=== PATIENT | male | born 1950 | race Caucasian/White ===

== ENCOUNTER 2019-08-28 12:25 | Outpatient (RCR) | payer MEDICARE, MEDICAID, SELFPAY ==
[2019-08-28 12:53] LABS: Basophils # 0.1 10^3/uL (0.0-0.1); Basophils % 1.1 %; Eosinophils # 0.2 10^3/uL (0.0-0.8); Eosinophils % 2.3 %; Hematocrit 42.4 % (42.0-52.0); Hemoglobin 13.3 g/dL (11.7-16.6); Lymphocytes # 2.6 10^3/uL (0.8-4.8); Lymphocytes % 31.3 %; Mean Corpuscular HGB Conc 31.4 g/dL (30.0-36.0); Mean Corpuscular Hemoglobin 26.4 pg (28.0-34.0); Mean Corpuscular Volume 84.3 fL (80-94); Mean Platelet Volume 10.6 fL (7.4-10.4); Monocytes # 1.1 10^3/uL (0.2-0.9); Monocytes % 13.9 %; Neutrophils # 4.2 10^3/uL (1.8-7.7); Neutrophils % 50.9 %; Nucleated Red Blood Cells % 0 %; Platelet Count 375 10^3/cmm (130-400); Red Blood Count 5.03 10^6/uL (4.1-5.3); Red Cell Distribution Width 15.9 % (12.1-15.1); White Blood Count 8.2 10^3/uL (4.0-10.0)
[2019-08-28 13:13] LABS: Alanine Aminotransferase 10 U/L (0-41); Albumin Level 3.8 g/dL (3.5-5.2); Alkaline Phosphatase 98 IU/L (40-130); Anion Gap 13.7 (5-19); Aspartate Amino Transferase 12 U/L (0-40); Blood Urea Nitrogen 14 mg/dL (8-23); Carbon Dioxide 29 mmol/L (22-29); Chloride 101 mmol/L (98-107); Glucose 121 mg/dL (74-106); Potassium 4.7 mmol/L (3.5-5.1); Sodium 139 mmol/L (136-145); Total Bilirubin 0.2 mg/dL (0.15-1.2); Total Protein 6.8 g/dL (6.6-8.7)
== END 2019-09-19 23:59 | disposition home or self-care (01) ==
LOC: LAB 12:25
PROVIDERS: Family Provider Internal Medicine; Visit Provider Internal Medicine
DX: E11.9 Type 2 diabetes mellitus without complications (principal); M19.90 Unspecified osteoarthritis, unspecified site; F41.9 Anxiety disorder, unspecified; I10 Essential (primary) hypertension
CPT/HCPCS: 80053; 85025

== ENCOUNTER → 2019-09-26 10:13 | Outpatient (BNVA) | payer MEDICARE, MEDICAID, SELFPAY | PROVIDERS: Family Provider Internal Medicine; Visit Provider Psychiatry & Neurology Psychiatry | DX: F70 Mild intellectual disabilities (principal); F33.42 Major depressive disorder, recurrent, in full remission; G30.9 Alzheimer's disease, unspecified; F02.81 Dementia in other diseases classified elsewhere, unspecified severity, with behavioral disturbance | CPT/HCPCS: 99213 ==

== ENCOUNTER → 2020-03-19 07:29 | Outpatient (BNVA) | payer MEDICARE, MEDICAID, SELFPAY | PROVIDERS: Family Provider Internal Medicine; Visit Provider Psychiatry & Neurology Psychiatry | DX: F33.42 Major depressive disorder, recurrent, in full remission (principal); F70 Mild intellectual disabilities; G30.9 Alzheimer's disease, unspecified; F02.81 Dementia in other diseases classified elsewhere, unspecified severity, with behavioral disturbance | CPT/HCPCS: 99213 ==

== ENCOUNTER 2020-06-12 16:44 | Emergency (ER) | payer MEDICARE, MEDICAID, SELFPAY ==
[2020-06-12] VITALS (7 sets, daily range): BP systolic 141–179; BP diastolic 90–109; PULSE 82–117; RESP 16–24; TEMP 37.2–39.1; O2SAT 92–95; BMI 40.1
--- NOTE | 2020-06-12 17:05 | XRR_ITS ---
PROCEDURE INFORMATION: Exam: XR Chest, 1 View Exam date and time: 06/12/2020 5:23 PM Age: 70 years old Clinical indication: Patient HX: Covid+ w fever, AMS and HTN TECHNIQUE: Imaging protocol: XR of the chest Views: 1 view. COMPARISON: CR Chest 1 [place] [id number] 02/01/2015 7:38 PM FINDINGS: Lungs: Subtle ground-glass opacity suspected in the lung bases. Linear atelectasis in the left lung base. Pleural space: Unremarkable. No pleural effusion. No pneumothorax. Heart/Mediastinum: Probable hiatal hernia. Bones/joints: Unremarkable. XR/XR chest 1V portable [id number] IMPRESSION: Subtle ground-glass opacities in the lung bases could represent viral pneumonia.
[2020-06-12 17:07] LABS: Glucose Point of Care 125 mg/dL (70-110)
--- NOTE | 2020-06-12 17:09 | ED_ITS ---
Documented by User: Kaleb Patel DO 06/14/20 17:40 HPI - URI/Sore Throat General: Chief Complaint: COVID symptoms Stated Complaint: COVID POS; AMS Time Seen by Provider: 06/12/20 16:53 History of Present Illness: HPI Narrative: 70-year-old male brought in from the alf via EMS. He tested positive on 06/03 at the alf. He was sent in via EMS with a complaint of altered mental status and elevated blood sugars. He is currently on dexamethasone. Blood sugar here was 120s. He has a known history of type 2 diabetes mellitus. He has some dementia and mild intellectual disability. Here he is laughing and in good spirits he denies any chest pain or shortness of breath even denies cough at this point. He denies any injury. There is report of back pain when asked him about back pain he denies any. There is also reported fever of 1012 at the alf. Patient is a full code. Patient is disoriented to time place and person he is tearful when he first arrives here but after a time this resolves and he is in good spirits. [facility] reports he is not a known diabetic however there are labs ordered in August of this year under the diagnosis of diabetes in our EMR. MD elicited complaint: other (Covid positive on 06/03) Pertinent past history: other (Mild dementia and intellectual disability) Onset (ago): day(s) Consistency: improved Severity: mild Able to tolerate fluids by mouth: Yes Exacerbating factors: nothing Relieving factors: nothing Associated symptoms: Deny abdominal pain, change in voice, chills, chest pain, congestion, cough, diarrhea, epistaxis, ear or mastoid pain, fever(s), headache(s), myalgias, nasal congestion, nausea, rash, rhinorrhea, short of breath, sinus pain, stiffness, sore throat, vomiting or other Treatments prior to arrival: none Review of Systems Const: Denies: fever(s) or chills ENMT: Denies: ear or mastoid pain, nasal congestion, epistaxis or sinus pain Card: Denies: chest pain Resp: Denies: dyspnea, productive cough or non-productive cough GI: Denies: abdominal pain, nausea, vomiting or diarrhea : Denies: flank pain, dysuria, urinary frequency or urinary urgency Skin/Breast: Denies: rash or pruritus Neuro: Denies: headache(s) PFSH ED PFSH: Medical History Alzheimer's dementia Depression, major, recurrent, in complete remission Mild intellectual disability Social History Smoking and tobacco status: never smoked Second hand smoke exposure: No Smoking risk assessment/counseling performed?: Yes Tobacco counseling given: counseling >3 minutes Physical Exam Const: COMMON NORMALS: no acute distress GENERAL APPEARANCE: cooperative and comfortable HENMT: COMMON NORMALS: normocephalic, atraumatic and hearing grossly normal bilaterally HEAD & SCALP: normocephalic and atraumatic Eye: COMMON NORMALS: Equal, round and reactive pupils present, EOMs intact bilaterally, conjunctivae normal and no scleral icterus CONJUNCTIVA: Yes conjunctivae normal PUPIL: Yes Equal, round and reactive pupils present Neck/C-Spine: COMMON NORMALS: full ROM, no lymphadenopathy, supple and no JVD Lymph: LYMPHATIC: no lymphadenopathy noted and no lymphedema noted Resp: COMMON NORMALS: normal respiratory effort, No retractions, No use of accessory muscles and clear to auscultation bilaterally AUSCULTATION: clear to auscultation bilaterally Cardio: COMMON NORMALS: no JVD, regular rate, regular rhythm and No murmurs present (Cardio) RATE: regular rate RHYTHM: regular rhythm GI: COMMON NORMALS: Soft to palpation and No hepatosplenomegaly present A USCULTATION: Yes normoactive bowel sounds PALPATION: Yes Soft to palpation, No Tenderness to palpation present (GI), No Guarding due to palpation present (GI) and Yes No hepatosplenomegaly present Extremity: COMMON NORMALS: normal to inspection, capillary refill normal, no clubbing, cyanosis or edema, no calf tenderness and no pedal edema Skin: COMMON NORMALS: no rashes or lesions noted GENERAL SKIN EXAM: no rashes or lesions noted Course Vital Signs: Vital signs: Vital Signs Temperature 98.9 F 06/12/20 20:43 Pulse Rate 85 06/12/20 20:43 Respiratory Rate 18 06/12/20 20:43 Blood Pressure 147/97 06/12/20 20:43 Pulse Oximetry 93 10/24/20 20:43 MDM - URI/Sore Throat MDM Narrative: Medical decision making narrative: Care turned over to Dr. Angeles at change of shift see his note for final diagnosis and disposition. Lab Data: Labs: Lab Results 06/12/20 06/12/20 06/12/20 Range/Units 17:01 17:05 17:05 WBC 18.1 H (4.0-10.0) 10^3/ uL RBC 5.65 H (4.1-5.3) 10^6/u L Hgb 15.2 (11.7-16.6) g/dL Hct 45.9 (42.0-52.0) % MCV 81.2 (80-94) fL MCH 26.9 L (28.0-34.0) pg MCHC 33.1 (30.0-36.0) g/dL RDW 15.1 (12.1-15.1) % Plt Count 316 (130-400) 10^3/c mm MPV 11.3 H (7.4-10.4) fL Neut % (Auto) 84.4 % Lymph % (Auto) 7.2 % Reagan % (Auto) 7.1 % Eos % (Auto) 0.0 % Baso % (Auto) 0.2 % Neut # (Auto) 15.27 H (1.8-7.7) 10^3/u L Lymph # (Auto) 1.3 (0.8-4.8) 10^3/u L Reagan # (Auto) 1.3 H (0.2-0.9) 10^3/u L Eos # (Auto) 0.0 (0.0-0.8) 10^3/u L Baso # (Auto) 0.0 (0.0-0.1) 10^3/u L Nucleated RBC % (a uto) 0 % Nucleated RBCs # 0.0 /100WBC Fibrinogen 614 H (174-498) mg/dL D-Dimer 0.59 (0-0.59) ug/mIFE U Specimen Type Sample Site ABG pH (7.35-7.45) ABG pCO2 (35-45) mmHg ABG pO2 (80.0-100.0) mmH g ABG HCO3 (22-26) mmol/L ABG Base Excess (-2.0-2.0) mmol/ L Ashish Test Hematocrit (42-52) % O2 Delivery Device FiO2 % [employer] ID Sodium Potassium Chloride Carbon Dioxide Anion Gap BUN Creatinine GFR Calculation Glucose POC Glucose 125 (70-110) mg/dL Calculated Osmolal ity Lactic Acid Calcium Total Bilirubin AST ALT Alkaline Phosphata se Lactate Dehydrogen ase Creatine Kinase C-Reactive Protein Total Protein Albumin Globulin 06/12/20 06/12/20 06/12/20 Range/Units 17:05 17:41 18:29 WBC (4.0-10.0) 10^3/ uL RBC (4.1-5.3) 10^6/u L Hgb (11.7-16.6) g/dL Hct (42.0-52.0) % MCV (80-94) fL MCH (28.0-34.0) pg MCHC (30.0-36.0) g/dL RDW (12.1-15.1) % Plt Count (130-400) 10^3/c mm MPV (7.4-10.4) fL Neut % (Auto) % Lymph % (Auto) % Reagan % (Auto) % Eos % (Auto) % Baso % (Auto) % Neut # (Auto) (1.8-7.7) 10^3/u L Lymph # (Auto) (0.8-4.8) 10^3/u L Reagan # (Auto) (0.2-0.9) 10^3/u L Eos # (Auto) (0.0-0.8) 10^3/u L Baso # (Auto) (0.0-0.1) 10^3/u L Nucleated RBC % (a uto) % Nucleated RBCs # /100WBC Fibrinogen (174-498) mg/dL D-Dimer (0-0.59) ug/mIFE U Specimen Type Arterial Sample Site Radial, right ABG pH 7.49 H (7.35-7.45) ABG pCO2 34.4 L (35-45) mmHg ABG pO2 61.2 L (80.0-100.0) mmH g ABG HCO3 25.9 (22-26) mmol/L ABG Base Excess 2.8 H (-2.0-2.0) mmol/ L Ashish Test Pos Hematocrit 46.5 (42-52) % O2 Delivery Device Room air FiO2 21.0 % [employer] ID glc Sodium Cancelled Potassium Cancelled Chloride Cancelled Carbon Dioxide Cancelled Anion Gap Cancelled BUN Cancelled Creatinine Cancelled GFR Calculation Cancelled Glucose Cancelled POC Glucose (70-110) mg/dL Calculated Osmolal ity Cancelled Lactic Acid Cancelled Calcium Cancelled Total Bilirubin Cancelled AST Cancelled ALT Cancelled Alkaline Phosphata se Cancelled Lactate Dehydrogen ase Cancelled Creatine Kinase Cancelled C-Reactive Protein Cancelled Total Protein Cancelled Albumin Cancelled Globulin Cancelled 06/12/20 06/12/20 Range/Units 19:10 19:10 WBC (4.0-10.0) 10^3/ uL RBC (4.1-5.3) 10^6/u L Hgb (11.7-16.6) g/dL Hct (42.0-52.0) % MCV (80-94) fL MCH (28.0-34.0) pg MCHC (30.0-36.0) g/dL RDW (12.1-15.1) % Plt Count (130-400) 10^3/c mm MPV (7.4-10.4) fL Neut % (Auto) % Lymph % (Auto) % Reagan % (Auto) % Eos % (Auto) % Baso % (Auto) % Neut # (Auto) (1.8-7.7) 10^3/u L Lymph # (Auto) (0.8-4.8) 10^3/u L Reagan # (Auto) (0.2-0.9) 10^3/u L Eos # (Auto) (0.0-0.8) 10^3/u L Baso # (Auto) (0.0-0.1) 10^3/u L Nucleated RBC % (a uto) % Nucleated RBCs # /100WBC Fibrinogen (174-498) mg/dL D-Dimer (0-0.59) ug/mIFE U Specimen Type Sample Site ABG pH (7.35-7.45) ABG pCO2 (35-45) mmHg ABG pO2 (80.0-100.0) mmH g ABG HCO3 (22-26) mmol/L ABG Base Excess (-2.0-2.0) mmol/ L Ashish Test Hematocrit (42-52) % O2 Delivery Device FiO2 % [employer] ID Sodium 133 L Potassium 3.9 Chloride 99 Carbon Dioxide 21 L Anion Gap 16.9 BUN 19 Creatinine 0.9 GFR Calculation 83.4 L Glucose 143 H POC Glucose (70-110) mg/dL Calculated Osmolal ity 281 L Lactic Acid 1.0 Calcium 8.2 L Total Bilirubin 0.3 AST 19 ALT 20 Alkaline Phosphata se 89 Lactate Dehydrogen ase 231 H Creatine Kinase 196 C-Reactive Protein 151.9 H Total Protein 6.8 Albumin 3.1 L Globulin 3.7 Discharge Plan Discharge Patient Disposition: Xfer [facility] Clinical Impression: Pneumonia due to 2019 novel coronavirus Condition: Stable Prescriptions: No Action lovastatin 20 mg tablet 20 mg PO DAILY RF: 0 omeprazole 40 mg capsule,delayed release(DR/EC) 40 mg PO .HS RF: 0 tamsulosin [Flomax] 0.4 mg capsule 0.4 mg PO DAILY RF: 0 bisacodyl 10 mg suppository 10 mg SC DAILY PRN (Reason: constipation) RF: 0 acetaminophen 500 mg capsule 500 mg PO Q6H PRNRF: 0 finasteride 5 mg tablet 5 mg PO DAILY RF: 0 quetiapine [Seroquel] 50 mg tablet 50 mg PO DAILY RF: 0 polyethylene glycol 3350 [Miralax] 17 gram/dose powder 17 gm PO DAILY PRN (Reason: constipation) RF: 0 Enema Disposable 19-7 gram/118 mL enema 118 ml SC DAILY PRNRF: 0 bisacodyl [Dulcolax (bisacodyl)] 10 mg suppository 10 mg SC DAILY PRNRF: 0 melatonin 1 mg tablet 1 mg PO DAILY RF: 0 magnesium hydroxide [Milk of Magnesia] 400 mg/5 mL suspension 5 ml PO DAILY PRNRF: 0 menthol 3.2 mg lozenge 3.2 mg MUCOUS MEM Q4H RF: 0 ondansetron HCl 4 mg tablet 4 mg PO Q6H PRN (Reason: nausea and vomiting) RF: 0 guaifenesin [Tussin] 100 mg/5 mL liquid 200 mg PO QID PRNRF: 0 Preparation H 0.25-14-74.9 % ointment 1 applic SC DAILY PRN (Reason: rectal discomfort) RF: 0 alum-mag hydroxide-simeth 200-200-20 mg/5 mL suspension 10 ml PO Q6H PRNRF: 0 Natural Tears (PF) 0.1-0.3 % dropperette 1 drop ophthalmic (eye) Q4H PRNRF: 0 bupropion HCl [Wellbutrin XL] 300 mg tablet extended release 24 hr 300 mg PO QAM Qty: 30 RF: 5 bupropion HCl [Wellbutrin XL] 150 mg tablet extended release 24 hr 150 mg PO QAM Qty: 30 RF: 5 desvenlafaxine succinate [Pristiq] 100 mg tablet extended release 24 hr 100 mg PO DAILY Qty: 30 RF: 5 donepezil [Aricept] 10 mg tablet 10 mg PO .HS Qty: 30 RF: 5 memantine [Namenda] 10 mg tablet 10 mg PO BID Qty: 60 RF: 5 Discharge Orders: Discharge Order (Routine); Ordered 06/12/20 Ordered By: Subhash Angeles Referrals: Emerson Pressley DO [Primary Care Provider] - Discharge Diet: Diabetic Discharge Activity: Increase activity as tolerated Patient Instructions: Viral Pneumonia (ED) Activity Restrictions/Additional Instructions: Continue to check blood sugars. Alert the physician if blood sugar remains more than 250, or is more than 150 fasting in the morning. Sugars may improve after course of dexamethasone is over. Continue the dexamethasone for now. Return for worsening shortness of breath despite treatment with oxygen, worsening mental status, inability to control blood sugar, other concerning symptoms. Discharge Date/Time: 06/12/20 22:03 Coding Level of Care Code ED Cotton Bag Clipper for Chg Fwd Exam Comprehensive Documented by User: Subhash Angeles DO 06/13/20 01:23 HPI - URI/Sore Throat General: Chief Complaint: COVID symptoms Stated Complaint: COVID POS; AMS Time Seen by Provider: 06/12/20 16:53 PFSH ED PFSH: Medical History Alzheimer's dementia Depression, major, recurrent, in complete remission Mild intellectual disability Social History Smoking and tobacco status: never smoked Second hand smoke exposure: No Smoking risk assessment/counseling performed?: Yes Tobacco counseling given: counseling >3 minutes Course Vital Signs: Vital signs: Vital Signs Temperature 98.9 F 06/12/20 20:43 Pulse Rate 85 06/12/20 20:43 Respiratory Rate 18 06/12/20 20:43 Blood Pressure 147/97 06/12/20 20:43 Pulse Oximetry 93 06/12/20 20:43 MDM - URI/Sore Throat MDM Narrative: Medical decision making narrative: 70-year-old male checked out to me by Dr. Patel. This patient has a history of dementia. He came from a alf with mental status changes. He has known COVID-19. He is mildly hypoxic, and on oxygen. Sats have been 90 to 93%. His respiratory rate is below 20. His heart rates in the 80s. Blood pressure is 140/90. His white blood cell count is 18, but he has been on dexamethasone for COVID-19. His bicarbonate level is 21. He is confused, but knows he is in the hospital in [place] and is conversant. His blood gas does not show any retention or acidosis. His lactic acid is normal. His CRP is elevated, but his D-dimer is normal. He has subtle opacities on x-ray. I think he can go back to continue his dexamethasone. He was sent here because of the potential of hyperglycemia, but without treatment his blood sugar is in the 120s. Lab Data: Labs: Lab Results 06/12/20 06/12/20 06/12/20 Range/Units 17:01 17:05 17:05 WBC 18.1 H (4.0-10.0) 10^3/ uL RBC 5.65 H (4.1-5.3) 10^6/u L Hgb 15.2 (11.7-16.6) g/dL Hct 45.9 (42.0-52.0) % MCV 81.2 (80-94) fL MCH 26.9 L (28.0-34.0) pg MCHC 33.1 (30.0-36.0) g/dL RDW 15.1 (12.1-15.1) % Plt Count 316 (130-400) 10^3/c mm MPV 11.3 H (7.4-10.4) fL Neut % (Auto) 84.4 % Lymph % (Auto) 7.2 % Reagan % (Auto) 7.1 % Eos % (Auto) 0.0 % Baso % (Auto) 0.2 % Neut # (Auto) 15.27 H (1.8-7.7) 10^3/u L Lymph # (Auto) 1.3 (0.8-4.8) 10^3/u L Reagan # (Auto) 1.3 H (0.2-0.9) 10^3/u L Eos # (Auto) 0.0 (0.0-0.8) 10^3/u L Baso # (Auto) 0.0 (0.0-0.1) 10^3/u L Nucleated RBC % (a uto) 0 % Nucleated RBCs # 0.0 /100WBC Fibrinogen 614 H (174-498) mg/dL D-Dimer 0.59 (0-0.59) ug/mIFE U Specimen Type Sample Site ABG pH (7.35-7.45) ABG pCO2 (35-45) mmHg ABG pO2 (80.0-100.0) mmH g ABG HCO3 (22-26) mmol/L ABG Base Excess (-2.0-2.0) mmol/ L Ashish Test Hematocrit (42-52) % O2 Delivery Device FiO2 % [employer] ID Sodium Potassium Chloride Carbon Dioxide Anion Gap BUN Creatinine GFR Calculation Glucose POC Glucose 125 (70-110) mg/dL Calculated Osmolal ity Lactic Acid Calcium Total Bilirubin AST ALT Alkaline Phosphata se Lactate Dehydrogen ase Creatine Kinase C-Reactive Protein Total Protein Albumin Globulin 06/12/20 06/12/20 06/12/20 Range/Units 17:05 17:41 18:29 WBC (4.0-10.0) 10^3/ uL RBC (4.1-5.3) 10^6/u L Hgb (11.7-16.6) g/dL Hct (42.0-52.0) % MCV (80-94) fL MCH (28.0-34.0) pg MCHC (30.0-36.0) g/dL RDW (12.1-15.1) % Plt Count (130-400) 10^3/c mm MPV (7.4-10.4) fL Neut % (Auto) % Lymph % (Auto) % Reagan % (Auto) % Eos % (Auto) % Baso % (Auto) % Neut # (Auto) (1.8-7.7) 10^3/u L Lymph # (Auto) (0.8-4.8) 10^3/u L Reagan # (Auto) (0.2-0.9) 10^3/u L Eos # (Auto) (0.0-0.8) 10^3/u L Baso # (Auto) (0.0-0.1) 10^3/u L Nucleated RBC % (a uto) % Nucleated RBCs # /100WBC Fibrinogen (174-498) mg/dL D-Dimer (0-0.59) ug/mIFE U Specimen Type Arterial Sample Site Radial, right ABG pH 7.49 H (7.35-7.45) ABG pCO2 34.4 L (35-45) mmHg ABG pO2 61.2 L (80.0-100.0) mmH g ABG HCO3 25.9 (22-26) mmol/L ABG Base Excess 2.8 H (-2.0-2.0) mmol/ L Ashish Test Pos Hematocrit 46.5 (42-52) % O2 Delivery Device Room air FiO2 21.0 % [employer] ID glc Sodium Cancelled Potassium Cancelled Chloride Cancelled Carbon Dioxide Cancelled Anion Gap Cancelled BUN Cancelled Creatinine Cancelled GFR Calculation Cancelled Glucose Cancelled POC Glucose (70-110) mg/dL Calculated Osmolal ity Cancelled Lactic Acid Cancelled Calcium Cancelled Total Bilirubin Cancelled AST Cancelled ALT Cancelled Alkaline Phosphata se Cancelled Lactate Dehydrogen ase Cancelled Creatine Kinase Cancelled C-Reactive Protein Cancelled Total Protein Cancelled Albumin Cancelled Globulin Cancelled 06/12/20 06/12/20 Range/Units 19:10 19:10 WBC (4.0-10.0) 10^3/ uL RBC (4.1-5.3) 10^6/u L Hgb (11.7-16.6) g/dL Hct (42.0-52.0) % MCV (80-94) fL MCH (28.0-34.0) pg MCHC (30.0-36.0) g/dL RDW (12.1-15.1) % Plt Count (130-400) 10^3/c mm MPV (7.4-10.4) fL Neut % (Auto) % Lymph % (Auto) % Reagan % (Auto) % Eos % (Auto) % Baso % (Auto) % Neut # (Auto) (1.8-7.7) 10^3/u L Lymph # (Auto) (0.8-4.8) 10^3/u L Reagan # (Auto) (0.2-0.9) 10^3/u L Eos # (Auto) (0.0-0.8) 10^3/u L Baso # (Auto) (0.0-0.1) 10^3/u L Nucleated RBC % (a uto) % Nucleated RBCs # /100WBC Fibrinogen (174-498) mg/dL D-Dimer (0-0.59) ug/mIFE U Specimen Type Sample Site ABG pH (7.35-7.45) ABG pCO2 (35-45) mmHg ABG pO2 (80.0-100.0) mmH g ABG HCO3 (22-26) mmol/L ABG Base Excess (-2.0-2.0) mmol/ L Ashish Test Hematocrit (42-52) % O2 Delivery Device FiO2 % [employer] ID Sodium 133 L Potassium 3.9 Chloride 99 Carbon Dioxide 21 L Anion Gap 16.9 BUN 19 Creatinine 0.9 GFR Calculation 83.4 L Glucose 143 H POC Glucose (70-110) mg/dL Calculated Osmolal ity 281 L Lactic Acid 1.0 Calcium 8.2 L Total Bilirubin 0.3 AST 19 ALT 20 Alkaline Phosphata se 89 Lactate Dehydrogen ase 231 H Creatine Kinase 196 C-Reactive Protein 151.9 H Total Protein 6.8 Albumin 3.1 L Globulin 3.7 Discharge Plan Discharge Patient Disposition: Xfer [facility] Clinical Impression: Pneumonia due to 2019 novel coronavirus Condition: Stable Prescriptions: No Action lovastatin 20 mg tablet 20 mg PO DAILY RF: 0 omeprazole 40 mg capsule,delayed release(DR/EC) 40 mg PO .HS RF: 0 tamsulosin [Flomax] 0.4 mg capsule 0.4 mg PO DAILY RF: 0 bisacodyl 10 mg suppository 10 mg SC DAILY PRN (Reason: constipation) RF: 0 acetaminophen 500 mg capsule 500 mg PO Q6H PRNRF: 0 finasteride 5 mg tablet 5 mg PO DAILY RF: 0 quetiapine [Seroquel] 50 mg tablet 50 mg PO DAILY RF: 0 polyethylene glycol 3350 [Miralax] 17 gram/dose powder 17 gm PO DAILY PRN (Reason: constipation) RF: 0 Enema Disposable 19-7 gram/118 mL enema 118 ml SC DAILY PRNRF: 0 bisacodyl [Dulcolax (bisacodyl)] 10 mg suppository 10 mg SC DAILY PRNRF: 0 melatonin 1 mg tablet 1 mg PO DAILY RF: 0 magnesium hydroxide [Milk of Magnesia] 400 mg/5 mL suspension 5 ml PO DAILY PRNRF: 0 menthol 3.2 mg lozenge 3.2 mg MUCOUS MEM Q4H RF: 0 ondansetron HCl 4 mg tablet 4 mg PO Q6H PRN (Reason: nausea and vomiting) RF: 0 guaifenesin [Tussin] 100 mg/5 mL liquid 200 mg PO QID PRNRF: 0 Preparation H 0.25-14-74.9 % ointment 1 applic SC DAILY PRN (Reason: rectal discomfort) RF: 0 alum-mag hydroxide-simeth 200-200-20 mg/5 mL suspension 10 ml PO Q6H PRNRF: 0 Natural Tears (PF) 0.1-0.3 % dropperette 1 drop ophthalmic (eye) Q4H PRNRF: 0 bupropion HCl [Wellbutrin XL] 300 mg tablet extended release 24 hr 300 mg PO QAM Qty: 30 RF: 5 bupropion HCl [Wellbutrin XL] 150 mg tablet extended release 24 hr 150 mg PO QAM Qty: 30 RF: 5 desvenlafaxine succinate [Pristiq] 100 mg tablet extended release 24 hr 100 mg PO DAILY Qty: 30 RF: 5 donepezil [Aricept] 10 mg tablet 10 mg PO .HS Qty: 30 RF: 5 memantine [Namenda] 10 mg tablet 10 mg PO BID Qty: 60 RF: 5 Discharge Orders: Discharge Order (Routine); Ordered 06/12/20 Ordered By: Subhash Angeles Referrals: Emerson Pressley DO [Primary Care Provider] - Discharge Diet: Diabetic Discharge Activity: Increase activity as tolerated Patient Instructions: Viral Pneumonia (ED) Activity Restrictions/Additional Instructions: Continue to check blood sugars. Alert the physician if blood sugar remains more than 250, or is more than 150 fasting in the morning. Sugars may improve after course of dexamethasone is over. Continue the dexamethasone for now. Return for worsening shortness of breath despite treatment with oxygen, worsening mental status, inability to control blood sugar, other concerning symptoms. Discharge Date/Time: 06/12/20 22:03 Coding Level of Care Code ED Cotton Bag Clipper for Chg Fwd Exam Comprehensive
[2020-06-12 17:23] LABS: Basophils % 0.2 %; Hematocrit 45.9 % (42.0-52.0); Hemoglobin 15.2 g/dL (11.7-16.6); Lymphocytes # 1.3 10^3/uL (0.8-4.8); Lymphocytes % 7.2 %; Mean Corpuscular HGB Conc 33.1 g/dL (30.0-36.0); Mean Corpuscular Hemoglobin 26.9 pg (28.0-34.0); Mean Corpuscular Volume 81.2 fL (80-94); Mean Platelet Volume 11.3 fL (7.4-10.4); Monocytes # 1.3 10^3/uL (0.2-0.9); Monocytes % 7.1 %; Neutrophils # 15.27 10^3/uL (1.8-7.7); Neutrophils % 84.4 %; Nucleated Red Blood Cells % 0 %; Platelet Count 316 10^3/cmm (130-400); Red Blood Count 5.65 10^6/uL (4.1-5.3); Red Cell Distribution Width 15.1 % (12.1-15.1); White Blood Count 18.1 10^3/uL (4.0-10.0)
[2020-06-12 17:43] LABS: Fibrinogen 614 mg/dL (174-498)
[2020-06-12 17:46] LABS: D Dimer 0.59 ug/mIFEU (0-0.59)
[2020-06-12 18:39] LABS: ABG PCO2 34.4 mmHg (35-45); ABG PH Result 7.49 (7.35-7.45); Arterial Blood Gas Hematocrit 46.5 % (42-52); Base Excess ABG 2.8 mmol/L (-2.0-2.0); Blood Gas Allen Test Pos; Blood Gas Operator Identificat glc; Blood Gas Sample Site Radial, right; Blood Gas Sample Type Arterial; HCO3 ABG 25.9 mmol/L (22-26); Oxygen Device ROOM AIR; PO2 ABG 61.2 mmHg (80.0-100.0)
[2020-06-12 19:47] LABS: Alanine Aminotransferase 20 U/L (0-41); Albumin Level 3.1 g/dL (3.5-5.2); Alkaline Phosphatase 89 IU/L (40-130); Anion Gap 16.9 (5-19); Aspartate Amino Transferase 19 U/L (0-40); Blood Urea Nitrogen 19 mg/dL (8-23); C Reactive Protein 151.9 mg/L (0.0-4.9); Calcium 8.2 mg/dL (8.5-10.5); Carbon Dioxide 21 mmol/L (22-29); Chloride 99 mmol/L (98-107); Creatine Phosphokinase 196 U/L (39-308); Globulin 3.7 g/dL (1.3-4.6); Glomerular Filtration Rate 83.4 mL/min (90-130); Glucose 143 mg/dL (65-115); Osmolality Calculated 281 mOsm/kg (285-295); Potassium 3.9 mmol/L (3.5-5.1); Sodium 133 mmol/L (136-145); Total Bilirubin 0.3 mg/dL (0.15-1.2); Total Protein 6.8 g/dL (6.6-8.7)
[2020-06-12] MEDS: acetaminophen 500 mg Tablet 1000 MG PO (20:09)
[2020-06-12 20:53] LABS: Lactate Dehydrogenase 231 U/L (135-225)
--- NOTE | 2020-06-12 22:02 | PC.NURSE ---
Transport here. Pt out via wheelchair with transport to [place].
== END 2020-06-12 22:03 | disposition skilled nursing facility (03) ==
PROVIDERS: Family Medicine; Emergency Provider Emergency Medicine; PCP Internal Medicine
DX: U07.1 COVID-19 (principal); J12.89 Other viral pneumonia; G30.9 Alzheimer's disease, unspecified; F02.80 Dementia in other diseases classified elsewhere, unspecified severity, without behavioral disturbance, psychotic disturbance, mood disturbance, and anxiety
CPT/HCPCS: 12345; 36416; 36600; 71045; 80053; 82550; 82803; 82962; 83605; 83615; 85025; 85378; 85384; 86140; 99283; 99284

== ENCOUNTER 2020-09-26 17:16 | Emergency (ER) | payer MEDICARE, MEDICAID, SELFPAY ==
[2020-09-26 17:19] VITALS: BP 203/120; PULSE 103; RESP 18; TEMP 36.2; O2SAT 92; BMI 34.9
[2020-09-26 17:28] VITALS: BP 203/120; PULSE 107; RESP 18; O2SAT 92
--- NOTE | 2020-09-26 17:28 | CTR_ITS ---
PROCEDURE INFORMATION: Exam: CT Head Without Contrast Exam date and time: 09/26/2020 5:38 PM Age: 70 years old Clinical indication: Injury or trauma; Blunt trauma (contusions or hematomas); Consciousness not specified; Patient HX: Nh PT w dementia found face down on floor (unwitnessed fall) C/O pain all over; Additional info: Fall/dementia ? altered TECHNIQUE: Imaging protocol: Computed tomography of the head without contrast. Total images: 207 Radiation optimization: All CT scans at this facility use at least one of these dose optimization techniques: automated exposure control; mA and/or kV adjustment per patient size (includes targeted exams where dose is matched to clinical indication); or iterative reconstruction. COMPARISON: CT head wo con* [id number] 06/26/2014 9:13 PM RADIATION DOSE METRICS: Total DLP (mGy-cm): 725.48 FINDINGS: Brain: No evidence of active or acute intracranial pathologic process, hemorrhage, or trauma. Unremarkable white matter for age. No mass effect. Cerebral ventricles: No ventriculomegaly. Bones/joints: Unremarkable. No acute fracture. Paranasal sinuses: Visualized sinuses are unremarkable. No fluid levels. Mastoid air cells: Visualized mastoid air cells are well aerated. Soft tissues: Unremarkable. CT/CT head wo con* [id number] IMPRESSION: No acute intracranial abnormality. Radiation Dose CTDIVOL = (mGy): DLP = 725.48 (mGy-cm)
--- NOTE | 2020-09-26 17:28 | XRR_ITS ---
PROCEDURE INFORMATION: Exam: XR Left Elbow Exam date and time: 09/26/2020 5:53 PM Age: 70 years old Clinical indication: Injury or trauma; Fall; Blunt trauma (contusions or hematomas); Elbow; Left TECHNIQUE: Imaging protocol: XR Left elbow. Views: 3 or more views. COMPARISON: No relevant prior studies available. FINDINGS: Tubes, catheters and devices: There is a catheter in the cubital fossa. Bones/joints: No evidence for acute fracture. Soft tissues: There is edema in the soft tissues posterior to the elbow. XR/XR elbow LT min 3V* [id number] IMPRESSION: Edema present in the soft tissues posterior to the elbow.
--- NOTE | 2020-09-26 17:29 | CTR_ITS ---
PROCEDURE INFORMATION: Exam: CT Chest Without Contrast; Diagnostic Exam date and time: 09/26/2020 5:38 PM Age: 70 years old Clinical indication: Injury or trauma; Generalized; Blunt trauma (contusions or hematomas); Prior surgery; Surgery date: 6+ months; Surgery type: Spleen; Patient HX: Nh PT w dementia found face down on floor (unwitnessed fall) C/O pain all over; Additional info: Unspecified abdominal pain TECHNIQUE: Imaging protocol: Diagnostic computed tomography of the chest without contrast. Radiation optimization: All CT scans at this facility use at least one of these dose optimization techniques: automated exposure control; mA and/or kV adjustment per patient size (includes targeted exams where dose is matched to clinical indication); or iterative reconstruction. COMPARISON: CT abdomen pelvis w con* [id number] 02/02/2017 10:06 AM RADIATION DOSE METRICS: Total DLP (mGy-cm): 2855.01 FINDINGS: Lungs: There are pulmonary parenchymal calcifications consistent with remote granulomatous organism exposure. Pleural spaces: Unremarkable. No pneumothorax. No pleural effusion. Heart: Unremarkable. No cardiomegaly. No pericardial effusion. Aorta: Unremarkable. No aortic aneurysm. Lymph nodes: Unremarkable. No enlarged lymph nodes. Diaphragm: Small fat containing hernia at the posteromedial aspect of the left hemidiaphragm is unchanged from the prior study. Fat containing paraesophageal also unchanged. Bones/joints: There is some ill-defined contour abnormality at the lateral aspects of the left 3rd through 7th ribs consistent with fracture of unknown chronicity. No definite acute soft tissue changes are seen in these regions and motion artifact makes evaluation suboptimal. There is prominent motion artifact in the region of the sternum and a sternal fracture cannot be excluded. Soft tissues: See Bones/joints finding. IMPRESSION: 1. Motion artifact does moderately limit the sensitivity of this examination.There is some ill-defined contour abnormality at the lateral aspects of the left 3rd through 7th ribs consistent with fracture of unknown chronicity. If there is acute pain in these locations, fractures are likely acute. Please correlate clinically. 2. There is prominent motion artifact in the region of the sternum and a sternal fracture cannot be excluded. PROCEDURE INFORMATION: Exam: CT Abdomen And Pelvis Without Contrast Exam date and time: 09/26/2020 5:38 PM Age: 70 years old Clinical indication: Injury or trauma; Generalized; Blunt trauma (contusions or hematomas); Prior surgery; Surgery date: 6+ months; Surgery type: Spleen; Patient HX: Nh PT w dementia found face down on floor (unwitnessed fall) C/O pain all over; Additional info: Unspecified abdominal pain TECHNIQUE: Imaging protocol: Computed tomography of the abdomen and pelvis without contrast. Radiation optimization: All CT scans at this facility use at least one of these dose optimization techniques: automated exposure control; mA and/or kV adjustment per patient size (includes targeted exams where dose is matched to clinical indication); or iterative reconstruction. COMPARISON: CT abdomen pelvis w con* [id number] 02/02/2017 10:06 AM RADIATION DOSE METRICS: Total DLP (mGy-cm): 2855.01 FINDINGS: Liver: Normal. No mass. Gallbladder and bile ducts: Normal. No calcified stones. No ductal dilation. Pancreas: Normal. No ductal dilation. Spleen: Spleen not visualized. Adrenal glands: Normal. No mass. Kidneys and ureters: There cysts in the left kidney with benign features the larger of which measures 17 mm. Follow-up is not necessary. Stomach and bowel: Unremarkable. No obstruction. No mucosal thickening. Appendix: No evidence of appendicitis. Intraperitoneal space: Unremarkable. No free air. No significant fluid collection. Vasculature: Unremarkable. No abdominal aortic aneurysm. Lymph nodes: Unremarkable. No enlarged lymph nodes. Urinary bladder: Unremarkable as visualized. Reproductive: There are calcifications in the prostate gland. Bones/joints: There are degenerative changes in the visualized spine. Minimal grade 1 anterolisthesis of L4 on L5. There is vacuum disc phenomenon at the L5-S1 level. Soft tissues: There is a fat containing hernia superior to the umbilicus which was seen on the prior study as well. There is minimal inflammatory stranding in the herniated fat. Tiny fat containing umbilical hernia. CT/CT chest abd pel wo con IMPRESSION: No acute findings.Non acute findings as described above. COMMENTS: Consistent with the [employer]'s Incidental Findings Committee white paper (J Am Cynthia Radiol 2018): Any incidental renal lesion less than 1 cm or classified as too small to characterize, or any incidental cystic renal lesion characterized as simple-appearing, is likely benign. No follow-up imaging is recommended for these lesions per consensus recommendations based on imaging criteria. Radiation Dose CTDIVOL = (mGy): DLP = 2855.01~2855.01 (mGy-cm)
--- NOTE | 2020-09-26 17:35 | ECG_ITS ---
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
--- NOTE | 2020-09-26 17:35 | CTR_ITS ---
PROCEDURE INFORMATION: Exam: CT Cervical Spine Without Contrast Exam date and time: 09/26/2020 5:38 PM Age: 70 years old Clinical indication: Injury or trauma; Blunt trauma; Patient HX: Nh PT w dementia found face down on floor (unwitnessed fall) C/O pain all over; Additional info: Fall/ neck pain TECHNIQUE: Imaging protocol: Computed tomography images of the cervical spine without contrast. Total images: 296 Radiation optimization: All CT scans at this facility use at least one of these dose optimization techniques: automated exposure control; mA and/or kV adjustment per patient size (includes targeted exams where dose is matched to clinical indication); or iterative reconstruction. COMPARISON: CT Cervical Spine wo* [id number] 05/10/2014 12:47 PM RADIATION DOSE METRICS: Total DLP (mGy-cm): 824.2 FINDINGS: Bones/joints: No visible fracture, subluxation, or dislocation. Diffuse degenerative disease with spondylosis deformans. Facet arthrosis. No visible cyst traumatic spondylolysis or spondylolisthesis. Discs/Spinal canal/Neural foramina: Degenerative disease and degenerative disc disease with spondylosis deformans most advanced C2/C3, C3/C4, C5/C6, and C6/C7. Moderate central canal narrowing C5/C6. Bilateral neural foraminal narrowing C3/C4 and C5/C6 Lungs: Lung apices are unremarkable. Soft tissues: Unremarkable for age. CT/CT cervical spin wo con* [id number] IMPRESSION: 1. No visible acute osseous abnormality, fracture, subluxation, or dislocation. 2. Advanced degenerative disease and degenerative disc disease. Radiation Dose CTDIVOL = (mGy): DLP = 824.2 (mGy-cm)
--- NOTE | 2020-09-26 17:37 | ED_ITS ---
Documented by User: Kevin Colvin MD 09/29/20 11:20 HPI - Fall General: Chief Complaint: Fall Stated Complaint: FALL; WEAKNESS Time Seen by Provider: 09/26/20 17:28 History of Present Illness: HPI Narrative: The patient is a 70-year-old male with past medical history hypertension, diabetes, learning disability and dementia. He comes to the ER after he was found wedged between the bed and the wall at the his longterm. He does not remember the fall but says he here I guess I fell. When asked where he hurts he says all over. It is difficult to ascertain if he lost consciousness or not because of his dementia and lack of memory of the event. He is tender in his head, neck perimusculature, bilateral shoulders and clavicles, bilateral ribs, para musculature diffusely down the spine, deep in his pelvis and hips as well. His right elbow is the only extremity with significant tenderness. The fall was not witnessed by staff. He got his second Covid vaccination yesterday. On arrival he was satting 86 to 88% on room air after he calm down. He was placed on 2 L oxygen. complaint: fall Onset (ago): minute(s) Fall from: out of bed Fall witnessed: no Place fall occurred: longterm/SNF Loss of consciousness: Unknown Prolonged down time: unclear Location of injury: head, neck, chest, back and pelvis Severity: moderate Quality: sharp Associated symptoms-after fall: Reports confusion and neck pain; Denies abdominal pain or chest pain Review of Systems General: Reports: 10 or more systems reviewed and unremarkable except in HPI and below Const: Denies: fatigue Eyes: Denies: change in vision, blurry vision or eye redness ENMT: Denies: throat pain, swelling of lips/tongue, ear or mastoid pain or nasal congestion Card: Denies: chest pain, palpitations, irregular heart rhythm, edema, dyspnea on exertion or orthopnea Resp: Denies: dyspnea, productive cough or non-productive cough GI: Denies: abdominal pain, diarrhea or GI cramping : Denies: flank pain, urinary frequency or urinary urgency Musc: Reports: neck pain, back pain and extremity pain Skin/Breast: Denies: rash, pruritus, erythema, skin pain or skin tenderness Neuro: Reports: confusion Psych: Denies: anxiety or depression Endo: Denies: polyuria All/Imm: Denies: urticaria, throat swelling or tongue swelling PFSH ED PFSH: Medical History (Updated 09/26/20 @ 20:07 by Subhash Angeles DO) Alzheimer's dementia Depression, major, recurrent, in complete remission Mild intellectual disability Social History Smoking and tobacco status: never smoked Second hand smoke exposure: No Smoking risk assessment/counseling performed?: Yes Tobacco counseling given: counseling >3 minutes Physical Exam Narrative: EXAM NARRATIVE: This is a man who is chronically demented satting 88% on room air. He does not remember the fall consistent with his dementia history. He has mild tenderness to his posterior head cervical para musculature, bilateral ribs, bilateral clavicles and humeral heads, lower lumbar spine and para musculature, bilateral hips and pelvis. He also has mild tenderness to his right elbow. Full range of motion intact. Const: COMMON NORMALS: no acute distress, average body habitus, patient oriented x3, no limitations, healthy appearing, alert and well nourished GENERAL APPEARANCE: cooperative, comfortable, well kempt and well developed ORIENTATION/CONSCIOUSNESS: Yes awake, Yes oriented to person, Yes oriented to place and Yes oriented to time HENMT: COMMON NORMALS: normocephalic, external ears normal and Normal external nose present HEAD & SCALP: normal to inspection and normocephalic NOSE: Normal external nose present EXTERNAL EAR: Yes external ears normal MOUTH: Normal oral and palatal mucosa present THROAT: posterior oropharynx normal Eye: COMMON NORMALS: Equal, round and reactive pupils present and EOMs intact bilaterally GENERAL EYE: appearance normal, both eyes and all related structures PUPIL: Yes Equal, round and reactive pupils present Neck/C-Spine: COMMON NORMALS: full ROM, no lymphadenopathy, no meningeal signs and no JVD GENERAL: Yes normal visual inspection and Yes tender OTHER: Tender cervical spinal para musculature. Mild tenderness to posterior scalp Lymph: LYMPHATIC: no lymphadenopathy noted Chest: COMMONS NORMALS: normal inspection of the chest OTHER: Tenderness to bilateral ribs on the mid axillary line Resp: COMMON NORMALS: normal respiratory effort, No retractions, No use of accessory muscles, clear to auscultation bilaterally and percussion normal EFFORT & INSPECTION: Yes able to speak in complete sentences AUSCULTATION: clear to auscultation bilaterally PERCUSSION: percussion normal Cardio: COMMON NORMALS: no JVD, regular rate, regular rhythm, S1 normal heart sound present, S2 normal heart sound present and Peripheral pulses 2+ throughout RATE: regular rate RHYTHM: regular rhythm HEART SOUNDS: S1 normal heart sound present and S2 normal heart sound present PERIPHERAL PULSES: Peripheral pulses 2+ throughout GI: COMMON NORMALS: Normal to inspection, nondistended, normoactive bowel sounds present, Soft to palpation, non-tender and no masses INSPECTION: Yes normal to inspection PALPATION: Yes Soft to palpation : COMMON NORMALS: Yes no CVA tenderness BLADDER/KIDNEY EXAM: Yes no CVA tenderness Back/Pelvis: COMMON NORMALS: no CVA tenderness and thoracic and lumbar spine normal to inspection THORACIC SPINE/UPPER BACK: Yes paraspinal muscle tenderness OTHER: Mild diffuse perimuscular tenderness to the cervical, thoracic, and lumbar spine. No step-offs or significant bony tenderness. Extremity: COMMON NORMALS: normal to inspection, full ROM, capillary refill normal, no joint enlargement and no pedal edema NARRATIVE EXTREMITY EXAM: Mild tenderness to right elbow. Full passive range of motion intact. Neurovascularly intact distal to injury GENERAL: Yes normal exam except as noted OTHER: Mild tenderness deep in the hips and pelvis. Neuro: COMMON NORMALS: patient oriented x3, CN's II-XII intact bilaterally, moves all extremities, no focal motor deficits, no sensory deficits noted and gait normal SENSORIUM/ORIENTATION: Yes alert, Yes oriented to person, Yes oriented to place and Yes oriented to time MENINGEAL SIGNS: Yes no meningeal signs Psych: COMMON NORMALS: mental status grossly normal, Normal thought process present, cooperative, normal affect and speech normal APPEARANCE: Yes well kempt ATTITUDE: Yes calm SPEECH: Yes normal speech THOUGHT PROCESS: Normal thought process present Skin: COMMON NORMALS: no rashes or lesions noted GENERAL SKIN EXAM: no rashes or lesions noted Course Vital Signs: Vital signs: Vital Signs Temperature 97.2 F L 09/26/20 17:19 Pulse Rate 94 09/26/20 21:43 Respiratory Rate 18 09/26/20 21:43 Blood Pressure 161/88 09/26/20 21:43 Pulse Oximetry 96 09/26/20 21:43 MDM - Fall MDM Narrative: Medical decision making narrative: Transfer care to Dr. Angeles at 6 PM Lab Data: Labs: Lab Results 09/26/20 09/26/20 09/26/20 Range/Units 17:30 17:30 17:30 WBC 13.5 H (4.0-10.0) 10^3/ uL RBC 5.43 H (4.1-5.3) 10^6/u L Hgb 15.0 (11.7-16.6) g/dL Hct 45.7 (42.0-52.0) % MCV 84.2 (80-94) fL MCH 27.6 L (28.0-34.0) pg MCHC 32.8 (30.0-36.0) g/dL RDW 14.8 (12.1-15.1) % Plt Count 371 (130-400) 10^3/c mm MPV 10.7 H (7.4-10.4) fL Neut % (Auto) 75.2 % Lymph % (Auto) 12.4 % [place] % (Auto) 10.8 % Eos % (Auto) 0.2 % Baso % (Auto) 0.7 % Neut # (Auto) 10.14 H (1.8-7.7) 10^3/u L Lymph # (Auto) 1.7 (0.8-4.8) 10^3/u L [place] # (Auto) 1.5 H (0.2-0.9) 10^3/u L Eos # (Auto) 0.0 (0.0-0.8) 10^3/u L Baso # (Auto) 0.1 (0.0-0.1) 10^3/u L Nucleated RBC % (a uto) 0.1 % Nucleated RBCs # 0.0 /100WBC Sodium 135 L (136-145) mmol/L Potassium 4.2 (3.5-5.1) mmol/L Chloride 97 L (98-107) mmol/L Carbon Dioxide 26 (22-29) mmol/L Anion Gap 16.2 (5-19) BUN 11 (8-23) mg/dL Creatinine 0.9 (0.7-1.2) mg/dL GFR Calculation 83.4 L (90-130) mL/min Glucose 131 H (65-115) mg/dL Calculated Osmolal ity 281 L (285-295) mOsm/k g Calcium 8.8 (8.5-10.5) mg/dL Total Bilirubin 0.2 (0.15-1.2) mg/dL AST 11 (0-40) U/L ALT 9 (0-41) U/L Alkaline Phosphata se 99 (40-130) IU/L Troponin T Baselin e 27 H (0-15) ng/L Troponin T 120 Min [place] (0-15) ng/L Delta Troponin T (0-10) ABS# Total Protein 7.4 (6.6-8.7) g/dL Albumin 4.0 (3.5-5.2) g/dL Globulin 3.4 (1.3-4.6) g/dL Urine Color (Yellow) Urine Appearance (CLEAR) Urine pH (5-7) Ur Specific Gravit y (1.005-1.030) Urine Protein (Negative) Urine Glucose (UA) (Normal) Urine Ketones (Negative) Urine Blood (Negative) Urine Nitrate (Negative) Urine Bilirubin (Negative) Prot Sulfosalicyli c Acd (Negative) Urine Urobilinogen (Negative) mg/dL Ur Leukocyte Gayle ase (Negative) Urine RBC (0-2) /hpf Urine WBC (0-5) /hpf Ur Squamous Epith Cells (0-5) /hpf Amorphous Sediment Urine Bacteria (NONE) /hpf Urine Mucus /hpf 09/26/20 09/26/20 Range/Units 18:26 19:44 WBC (4.0-10.0) 10^3/ uL RBC (4.1-5.3) 10^6/u L Hgb (11.7-16.6) g/dL Hct (42.0-52.0) % MCV (80-94) fL MCH (28.0-34.0) pg MCHC (30.0-36.0) g/dL RDW (12.1-15.1) % Plt Count (130-400) 10^3/c mm MPV (7.4-10.4) fL Neut % (Auto) % Lymph % (Auto) % [place] % (Auto) % Eos % (Auto) % Baso % (Auto) % Neut # (Auto) (1.8-7.7) 10^3/u L Lymph # (Auto) (0.8-4.8) 10^3/u L [place] # (Auto) (0.2-0.9) 10^3/u L Eos # (Auto) (0.0-0.8) 10^3/u L Baso # (Auto) (0.0-0.1) 10^3/u L Nucleated RBC % (a uto) % Nucleated RBCs # /100WBC Sodium (136-145) mmol/L Potassium (3.5-5.1) mmol/L Chloride (98-107) mmol/L Carbon Dioxide (22-29) mmol/L Anion Gap (5-19) BUN (8-23) mg/dL Creatinine (0.7-1.2) mg/dL GFR Calculation (90-130) mL/min Glucose (65-115) mg/dL Calculated Osmolal ity (285-295) mOsm/k g Calcium (8.5-10.5) mg/dL Total Bilirubin (0.15-1.2) mg/dL AST (0-40) U/L ALT (0-41) U/L Alkaline Phosphata se (40-130) IU/L Troponin T Baselin e (0-15) ng/L Troponin T 120 Min [place] 27.96 H (0-15) ng/L Delta Troponin T 0.96 (0-10) ABS# Total Protein (6.6-8.7) g/dL Albumin (3.5-5.2) g/dL Globulin (1.3-4.6) g/dL Urine Color Yellow (Yellow) Urine Appearance Clear (CLEAR) Urine pH 8 H (5-7) Ur Specific Gravit y 1.010 (1.005-1.030) Urine Protein Trace (Negative) Urine Glucose (UA) Norm (Normal) Urine Ketones 1+ H (Negative) Urine Blood Neg (Negative) Urine Nitrate Negative (Negative) Urine Bilirubin Neg (Negative) Prot Sulfosalicyli c Acd Positive (Negative) Urine Urobilinogen Norm (Negative) mg/dL Ur Leukocyte Gayle ase Negative (Negative) Urine RBC None (0-2) /hpf Urine WBC 0-4 H (0-5) /hpf Ur Squamous Epith Cells 5-10 H (0-5) /hpf Amorphous Sediment Not Reportable Urine Bacteria Trace (NONE) /hpf Urine Mucus 1+ /hpf Discharge Plan Discharge Patient Disposition: Home Clinical Impression: Multiple rib fractures Qualifiers: Encounter type: initial encounter Fracture type: closed Laterality: left Qualified Code(s): S22.42XA - Multiple fractures of ribs, left side, initial encounter for closed fracture Condition: Stable Prescriptions: [place] 5-325 mg tablet 1 tab PO Q6H Qty: 10 RF: 0 No Action lovastatin 20 mg tablet 20 mg PO DAILY@1999 RF: 0 omeprazole 40 mg capsule,delayed release(DR/EC) 40 mg PO DAILY@0600 RF: 0 tamsulosin [Flomax] 0.4 mg capsule 0.4 mg PO BEDTIME@1999 RF: 0 bisacodyl 10 mg suppository 10 mg UT DAILY PRN (Reason: constipation) RF: 0 finasteride 5 mg tablet 5 mg PO DAILY@1999 RF: 0 quetiapine [Seroquel] 50 mg tablet 50 mg PO BEDTIME@1999 RF: 0 polyethylene glycol 3350 [Miralax] 17 gram/dose powder 17 gm PO DAILY PRN (Reason: constipation) RF: 0 Enema Disposable 19-7 gram/118 mL enema 118 ml UT DAILY PRN (Reason: Constipation) RF: 0 melatonin 1 mg tablet 1 mg PO DAILY@1999 RF: 0 magnesium hydroxide [Milk of Magnesia] 400 mg/5 mL suspension 5 ml PO DAILY PRN (Reason: Constipation) RF: 0 menthol 3.2 mg lozenge 3.2 mg MUCOUS MEM Q4H RF: 0 ondansetron HCl 4 mg tablet 4 mg PO Q6H PRN (Reason: nausea and vomiting) RF: 0 guaifenesin [Tussin] 100 mg/5 mL liquid 200 mg PO QID PRN (Reason: Cough) RF: 0 Preparation H 0.25-14-74.9 % ointment 1 applic UT DAILY PRN (Reason: rectal discomfort) RF: 0 alum-mag hydroxide-simeth 200-200-20 mg/5 mL suspension 10 ml PO Q6H PRN (Reason: Acid Reflux) RF: 0 Natural Tears (PF) 0.1-0.3 % dropperette 1 drop ophthalmic (eye) Q4H PRN (Reason: Dry Eye(S)) RF: 0 Tylenol 325 mg Tablet 650 mg PO Q4H PRN (Reason: Pain) RF: 0 Debrox 6.5 % Drops 4 drp otic (ear) Q7D PRN (Reason: UNSPECIFIED ) RF: 0 Aricept 10 mg tablet 10 mg PO BEDTIME@2000 RF: 0 Wellbutrin XL 300 mg tablet extended release 24 hr 300 mg PO DAILY@0800 RF: 0 Wellbutrin XL 150 mg tablet extended release 24 hr 150 mg PO DAILY@0800 RF: 0 Namenda 10 mg tablet 10 mg PO BID@0800,2000 RF: 0 Pristiq 100 mg tablet extended release 24 hr 100 mg PO DAILY@0800 RF: 0 Discharge Orders: Discharge ED (Routine); Ordered 09/26/20 Ordered By: Subhash Angeles Referrals: Emerson Pressley DO [Primary Care Provider] - 4-7 days Discharge Diet: Advance as tolerated Discharge Activity: Increase activity as tolerated Patient Instructions: Rib Fracture (ED) Activity Restrictions/Additional Instructions: Placed on 2 L of oxygen. Pulse ox checks every shift. Return immediately for shortness of breath, cough, fever, mental status changes, other concerning symptoms. Use incentive spirometry while awake once every 2 hours if possible. Coding Level of Care Code ED Assessment Technician for Chg Fwd Exam Comprehensive Documented by User: Subhash Angeles DO 09/26/20 22:10 HPI - Fall General: Chief Complaint: Fall Stated Complaint: FALL; WEAKNESS Time Seen by Provider: 09/26/20 17:28 PFS ED PFSH: Medical History (Updated 09/26/20 @ 20:07 by Subhash Angeles DO) Alzheimer's dementia Depression, major, recurrent, in complete remission Mild intellectual disability Social History Smoking and tobacco status: never smoked Second hand smoke exposure: No Smoking risk assessment/counseling performed?: Yes Tobacco counseling given: counseling >3 minutes Course Vital Signs: Vital signs: Vital Signs Temperature 97.2 F L 09/26/20 17:19 Pulse Rate 94 09/26/20 21:43 Respiratory Rate 18 09/26/20 21:43 Blood Pressure 161/88 09/26/20 21:43 Pulse Oximetry 96 09/26/20 21:43 MDM - Fall MDM Narrative: Medical decision making narrative: 70-year-old male checked out to me by Dr. Haas at 6 PM. This gentleman fell in the longterm. He complained of widespread pain. He does not remember the event. His head CT is negative. Cervical spine CT is negative. Chest CT shows likely rib fractures of the left third through seventh ribs. There are no associated contusion or infiltrate. His white blood cell count is 13.5. His electrolytes are essentially normal. His first troponin is slightly elevated. His EKG shows a sinus rhythm with a right axis deviation a rate of 90, and no acute ST changes. His first troponin is 27. We are awaiting a second troponin. His urinalysis is negative for infection. Lab Data: Labs: Lab Results 09/26/20 09/26/20 09/26/20 Range/Units 17:30 17:30 17:30 WBC 13.5 H (4.0-10.0) 10^3/ uL RBC 5.43 H (4.1-5.3) 10^6/u L Hgb 15.0 (11.7-16.6) g/dL Hct 45.7 (42.0-52.0) % MCV 84.2 (80-94) fL MCH 27.6 L (28.0-34.0) pg MCHC 32.8 (30.0-36.0) g/dL RDW 14.8 (12.1-15.1) % Plt Count 371 (130-400) 10^3/c mm MPV 10.7 H (7.4-10.4) fL Neut % (Auto) 75.2 % Lymph % (Auto) 12.4 % [place] % (Auto) 10.8 % Eos % (Auto) 0.2 % Baso % (Auto) 0.7 % Neut # (Auto) 10.14 H (1.8-7.7) 10^3/u L Lymph # (Auto) 1.7 (0.8-4.8) 10^3/u L [place] # (Auto) 1.5 H (0.2-0.9) 10^3/u L Eos # (Auto) 0.0 (0.0-0.8) 10^3/u L Baso # (Auto) 0.1 (0.0-0.1) 10^3/u L Nucleated RBC % (a uto) 0.1 % Nucleated RBCs # 0.0 /100WBC Sodium 135 L (136-145) mmol/L Potassium 4.2 (3.5-5.1) mmol/L Chloride 97 L (98-107) mmol/L Carbon Dioxide 26 (22-29) mmol/L Anion Gap 16.2 (5-19) BUN 11 (8-23) mg/dL Creatinine 0.9 (0.7-1.2) mg/dL GFR Calculation 83.4 L (90-130) mL/min Glucose 131 H (65-115) mg/dL Calculated Osmolal ity 281 L (285-295) mOsm/k g Calcium 8.8 (8.5-10.5) mg/dL Total Bilirubin 0.2 (0.15-1.2) mg/dL AST 11 (0-40) U/L ALT 9 (0-41) U/L Alkaline Phosphata se 99 (40-130) IU/L Troponin T Baselin e 27 H (0-15) ng/L Troponin T 120 Min [place] (0-15) ng/L Delta Troponin T (0-10) ABS# Total Protein 7.4 (6.6-8.7) g/dL Albumin 4.0 (3.5-5.2) g/dL Globulin 3.4 (1.3-4.6) g/dL Urine Color (Yellow) Urine Appearance (CLEAR) Urine pH (5-7) Ur Specific Gravit y (1.005-1.030) Urine Protein (Negative) Urine Glucose (UA) (Normal) Urine Ketones (Negative) Urine Blood (Negative) Urine Nitrate (Negative) Urine Bilirubin (Negative) Prot Sulfosalicyli c Acd (Negative) Urine Urobilinogen (Negative) mg/dL Ur Leukocyte Gayle ase (Negative) Urine RBC (0-2) /hpf Urine WBC (0-5) /hpf Ur Squamous Epith Cells (0-5) /hpf Amorphous Sediment Urine Bacteria (NONE) /hpf Urine Mucus /hpf 09/26/20 09/26/20 Range/Units 18:26 19:44 WBC (4.0-10.0) 10^3/ uL RBC (4.1-5.3) 10^6/u L Hgb (11.7-16.6) g/dL Hct (42.0-52.0) % MCV (80-94) fL MCH (28.0-34.0) pg MCHC (30.0-36.0) g/dL RDW (12.1-15.1) % Plt Count (130-400) 10^3/c mm MPV (7.4-10.4) fL Neut % (Auto) % Lymph % (Auto) % [place] % (Auto) % Eos % (Auto) % Baso % (Auto) % Neut # (Auto) (1.8-7.7) 10^3/u L Lymph # (Auto) (0.8-4.8) 10^3/u L [place] # (Auto) (0.2-0.9) 10^3/u L Eos # (Auto) (0.0-0.8) 10^3/u L Baso # (Auto) (0.0-0.1) 10^3/u L Nucleated RBC % (a uto) % Nucleated RBCs # /100WBC Sodium (136-145) mmol/L Potassium (3.5-5.1) mmol/L Chloride (98-107) mmol/L Carbon Dioxide (22-29) mmol/L Anion Gap (5-19) BUN (8-23) mg/dL Creatinine (0.7-1.2) mg/dL GFR Calculation (90-130) mL/min Glucose (65-115) mg/dL Calculated Osmolal ity (285-295) mOsm/k g Calcium (8.5-10.5) mg/dL Total Bilirubin (0.15-1.2) mg/dL AST (0-40) U/L ALT (0-41) U/L Alkaline Phosphata se (40-130) IU/L Troponin T Baselin e (0-15) ng/L Troponin T 120 Min [place] 27.96 H (0-15) ng/L Delta Troponin T 0.96 (0-10) ABS# Total Protein (6.6-8.7) g/dL Albumin (3.5-5.2) g/dL Globulin (1.3-4.6) g/dL Urine Color Yellow (Yellow) Urine Appearance Clear (CLEAR) Urine pH 8 H (5-7) Ur Specific Gravit y 1.010 (1.005-1.030) Urine Protein Trace (Negative) Urine Glucose (UA) Norm (Normal) Urine Ketones 1+ H (Negative) Urine Blood Neg (Negative) Urine Nitrate Negative (Negative) Urine Bilirubin Neg (Negative) Prot Sulfosalicyli c Acd Positive (Negative) Urine Urobilinogen Norm (Negative) mg/dL Ur Leukocyte Gayle ase Negative (Negative) Urine RBC None (0-2) /hpf Urine WBC 0-4 H (0-5) /hpf Ur Squamous Epith Cells 5-10 H (0-5) /hpf Amorphous Sediment Not Reportable Urine Bacteria Trace (NONE) /hpf Urine Mucus 1+ /hpf Discharge Plan Discharge Patient Disposition: Home Clinical Impression: Multiple rib fractures Qualifiers: Encounter type: initial encounter Fracture type: closed Laterality: left Qualified Code(s): S22.42XA - Multiple fractures of ribs, left side, initial encounter for closed fracture Condition: Stable Prescriptions: [place] 5-325 mg tablet 1 tab PO Q6H Qty: 10 RF: 0 No Action lovastatin 20 mg tablet 20 mg PO DAILY@1999 RF: 0 omeprazole 40 mg capsule,delayed release(DR/EC) 40 mg PO DAILY@0600 RF: 0 tamsulosin [Flomax] 0.4 mg capsule 0.4 mg PO BEDTIME@1999 RF: 0 bisacodyl 10 mg suppository 10 mg UT DAILY PRN (Reason: constipation) RF: 0 finasteride 5 mg tablet 5 mg PO DAILY@1999 RF: 0 quetiapine [Seroquel] 50 mg tablet 50 mg PO BEDTIME@1999 RF: 0 polyethylene glycol 3350 [Miralax] 17 gram/dose powder 17 gm PO DAILY PRN (Reason: constipation) RF: 0 Enema Disposable 19-7 gram/118 mL enema 118 ml UT DAILY PRN (Reason: Constipation) RF: 0 melatonin 1 mg tablet 1 mg PO DAILY@1999 RF: 0 magnesium hydroxide [Milk of Magnesia] 400 mg/5 mL suspension 5 ml PO DAILY PRN (Reason: Constipation) RF: 0 menthol 3.2 mg lozenge 3.2 mg MUCOUS MEM Q4H RF: 0 ondansetron HCl 4 mg tablet 4 mg PO Q6H PRN (Reason: nausea and vomiting) RF: 0 guaifenesin [Tussin] 100 mg/5 mL liquid 200 mg PO QID PRN (Reason: Cough) RF: 0 Preparation H 0.25-14-74.9 % ointment 1 applic UT DAILY PRN (Reason: rectal discomfort) RF: 0 alum-mag hydroxide-simeth 200-200-20 mg/5 mL suspension 10 ml PO Q6H PRN (Reason: Acid Reflux) RF: 0 Natural Tears (PF) 0.1-0.3 % dropperette 1 drop ophthalmic (eye) Q4H PRN (Reason: Dry Eye(S)) RF: 0 Tylenol 325 mg Tablet 650 mg PO Q4H PRN (Reason: Pain) RF: 0 Debrox 6.5 % Drops 4 drp otic (ear) Q7D PRN (Reason: UNSPECIFIED ) RF: 0 Aricept 10 mg tablet 10 mg PO BEDTIME@2000 RF: 0 Wellbutrin XL 300 mg tablet extended release 24 hr 300 mg PO DAILY@0800 RF: 0 Wellbutrin XL 150 mg tablet extended release 24 hr 150 mg PO DAILY@0800 RF: 0 Namenda 10 mg tablet 10 mg PO BID@0800,2000 RF: 0 Pristiq 100 mg tablet extended release 24 hr 100 mg PO DAILY@0800 RF: 0 Discharge Orders: Discharge ED (Routine); Ordered 09/26/20 Ordered By: Subhash Angeles Referrals: Emerson Pressley DO [Primary Care Provider] - 4-7 days Discharge Diet: Advance as tolerated Discharge Activity: Increase activity as tolerated Patient Instructions: Rib Fracture (ED) Activity Restrictions/Additional Instructions: Placed on 2 L of oxygen. Pulse ox checks every shift. Return immediately for shortness of breath, cough, fever, mental status changes, other concerning symptoms. Use incentive spirometry while awake once every 2 hours if possible. Coding Level of Care Code ED Assessment Technician for Daily Fwd Exam Comprehensive
[2020-09-26 17:47] LABS: Basophils # 0.1 10^3/uL (0.0-0.1); Basophils % 0.7 %; Eosinophils % 0.2 %; Hematocrit 45.7 % (42.0-52.0); Lymphocytes # 1.7 10^3/uL (0.8-4.8); Lymphocytes % 12.4 %; Mean Corpuscular HGB Conc 32.8 g/dL (30.0-36.0); Mean Corpuscular Hemoglobin 27.6 pg (28.0-34.0); Mean Corpuscular Volume 84.2 fL (80-94); Mean Platelet Volume 10.7 fL (7.4-10.4); Monocytes # 1.5 10^3/uL (0.2-0.9); Monocytes % 10.8 %; Neutrophils # 10.14 10^3/uL (1.8-7.7); Neutrophils % 75.2 %; Nucleated Red Blood Cells % 0.1 %; Platelet Count 371 10^3/cmm (130-400); Red Blood Count 5.43 10^6/uL (4.1-5.3); Red Cell Distribution Width 14.8 % (12.1-15.1); White Blood Count 13.5 10^3/uL (4.0-10.0)
[2020-09-26 18:00] LABS: Alanine Aminotransferase 9 U/L (0-41); Alkaline Phosphatase 99 IU/L (40-130); Anion Gap 16.2 (5-19); Aspartate Amino Transferase 11 U/L (0-40); Blood Urea Nitrogen 11 mg/dL (8-23); Calcium 8.8 mg/dL (8.5-10.5); Carbon Dioxide 26 mmol/L (22-29); Chloride 97 mmol/L (98-107); Globulin 3.4 g/dL (1.3-4.6); Glomerular Filtration Rate 83.4 mL/min (90-130); Glucose 131 mg/dL (65-115); Osmolality Calculated 281 mOsm/kg (285-295); Potassium 4.2 mmol/L (3.5-5.1); Sodium 135 mmol/L (136-145); Total Bilirubin 0.2 mg/dL (0.15-1.2); Total Protein 7.4 g/dL (6.6-8.7)
[2020-09-26 18:01] LABS: Troponin(5th) Baseline 27 ng/L (0-15)
[2020-09-26 18:13] VITALS: BP 179/117; PULSE 96; RESP 20; O2SAT 95
[2020-09-26] MEDS: ketorolac 30 mg/mL INJ 15 MG IVP (18:24)
[2020-09-26] MEDS: amlodipine 10 mg Tablet PO (18:33)
[2020-09-26] MEDS: enalaprilat 1.25 mg/mL Inj IVP (18:33)
[2020-09-26 18:35] VITALS: BP 175/115; PULSE 95; RESP 16; O2SAT 96
[2020-09-26 18:43] LABS: Add Urine Microscopic? YES; Bilirubin Urine Neg (Negative); Blood Urine Neg (Negative); Glucose Urine UA Norm (Normal); Ketones Urine 1+ (Negative); Leukocyte Esterase Urine Negative (Negative); Nitrate Urine Negative (Negative); Protein Urine Trace (Negative); Sulfosalicylic Acid Urine Positive (Negative); Urine Appearance Clear (CLEAR); Urine Color Yellow (Yellow); Urobilinogen Urine Norm (Negative); pH Urine 8 (5-7)
[2020-09-26 18:59] LABS: Bacteria Urine TRACE /hpf; Mucus Urine 1+ /hpf; WBC Urine 0-4 /hpf (0-5)
[2020-09-26 19:00] LABS: Add Urine Culture? No
--- NOTE | 2020-09-26 19:35 | ECG_ITS ---
[facility] Test Date: 2020-09-26 Pat Name: Dimitris Santiago Department: Room: Gender: Male Health Care Liaison: : 1950 Requested By: Kevin Colvin Order Number: [id number] Yenni MD: SHANI CASTANO Measurements Intervals [place] Rate: 88 P: 46 RI: 168 QRS: 106 QRSD: 93 T: 31 QT: 351 QTc: 427 Interpretive Statements SINUS RHYTHM RIGHT AXIS DEVIATION [QRS AXIS > 100] Compared to ECG 09/26/2020 17:31:37 Right-axis deviation now present Sinus tachycardia no longer present Electronically Signed On 09-26-2020 21:18:41 [employer] by SHANI CASTANO [id number]
[2020-09-26 20:08] LABS: Troponin 5 2HR 27.96 ng/L (0-15); Troponin 5 2HR Delta 0.96 ABS# (0-10)
[2020-09-26 20:10] VITALS: BP 175/112; PULSE 91; RESP 18; O2SAT 94
[2020-09-26] MEDS: hyDRALAzine 20 mg/mL INJ 1 mL 10 MG IVP (20:21)
[2020-09-26 21:43] VITALS: BP 161/88; PULSE 94; RESP 18; O2SAT 96
== END 2020-09-26 21:45 | disposition home or self-care (01) ==
PROVIDERS: Family Medicine; Emergency Provider Emergency Medicine; PCP Internal Medicine
DX: S22.42XA Multiple fractures of ribs, left side, initial encounter for closed fracture (principal); G30.9 Alzheimer's disease, unspecified; F02.80 Dementia in other diseases classified elsewhere, unspecified severity, without behavioral disturbance, psychotic disturbance, mood disturbance, and anxiety; W06.XXXA Fall from bed, initial encounter; Y92.122 Bedroom in nursing home as the place of occurrence of the external cause
CPT/HCPCS: 12345; 36415; 70450; 71250; 72125; 73080; 74176; 80053; 81001; 84484; 85025; 93005; 96374; 96375; 99282; 99284; J0360; J1885; J3490

== ENCOUNTER 2021-05-09 15:32 | Emergency (ER) | payer MEDICARE, MEDICAID, SELFPAY ==
[2021-05-09 15:49] VITALS: BP 158/98; PULSE 90; RESP 16; TEMP 36.9; O2SAT 93
[2021-05-09 16:01] VITALS: BP 158/98; PULSE 87; RESP 16; O2SAT 94
--- NOTE | 2021-05-09 16:25 | CTR_ITS ---
PROCEDURE INFORMATION: Exam: CT Head Without Contrast Exam date and time: 05/09/2021 4:25 PM Age: 71 years old Clinical indication: Injury or trauma; Fall; Blunt trauma (contusions or hematomas); Additional info: Fall with left above eyebrow laceration TECHNIQUE: Imaging protocol: Computed tomography of the head without contrast. Radiation optimization: All CT scans at this facility use at least one of these dose optimization techniques: automated exposure control; mA and/or kV adjustment per patient size (includes targeted exams where dose is matched to clinical indication); or iterative reconstruction. COMPARISON: CT head wo con* [id number] 09/26/2020 5:50 PM RADIATION DOSE METRICS: Total DLP (mGy-cm): 886.09 FINDINGS: Brain: The sulci are within normal limits. Mild hypodensities in supratentorial periventricular and subcortical white matter, consistent with microangiopathy. No intracranial hemorrhage. Cerebral ventricles: No ventriculomegaly. Paranasal sinuses: Visualized sinuses are unremarkable. No fluid levels. Mastoid air cells: Visualized mastoid air cells are well aerated. Vasculature: No hyperdense artery. Bones/joints: Unremarkable. No acute fracture. Soft tissues: Left supraorbital scalp contusion and laceration. CT/CT head wo con* [id number] IMPRESSION: 1. No fracture or intracranial hemorrhage. 2. Left supraorbital scalp injury. Radiation Dose CTDIVOL = (mGy): DLP = 886.09 (mGy-cm)
--- NOTE | 2021-05-09 16:30 | ED_ITS ---
HPI - Fall General: Chief Complaint: Fall Stated Complaint: FALL, HIT HEAD Time Seen by Provider: 05/09/21 15:55 History of Present Illness: HPI Narrative: Patient is a 71-year-old male comes to the ED with a fall. Patient was in his house in standing position and lost his balance and fell forward hitting his head on the tile floor. Denies any loss of consciousness, headache, nausea/vomiting or any other neurological symptoms. He has a small superficial laceration just above his left eyebrow. He states that he is not up-to-date on his tetanus and would like a booster today. Associated symptoms-after fall: Denies abdominal pain, chest pain, headache(s), hematuria or neck pain Review of Systems Const: Denies: fever(s), chills or fatigue Eyes: Denies: change in vision or eye discomfort ENMT: Denies: throat pain, odynophagia, nasal discharge or nasal congestion Card: Denies: chest pain, palpitations, edema, swelling of feet/ankles, dyspnea on exertion or orthopnea Resp: Denies: dyspnea, productive cough or non-productive cough GI: Denies: abdominal pain, nausea, vomiting, diarrhea, constipation or hematochezia : Denies: flank pain, difficulty urinating, dysuria or hematuria Musc: Denies: neck pain, back pain or extremity swelling Skin/Breast: Reports: new lesions (left forehead laceration); Denies: rash Neuro: Denies: headache(s), numbness in extremities or weakness in extremities FORMERLY [facility], 1928–1983 ED PFSH: Medical History Alzheimer's dementia Depression, major, recurrent, in complete remission Mild intellectual disability Social History Smoking and tobacco status: never smoked Second hand smoke exposure: No Smoking risk assessment/counseling performed?: Yes Tobacco counseling given: counseling >3 minutes Physical Exam Const: COMMON NORMALS: no acute distress, patient oriented x3 and alert GENERAL APPEARANCE: cooperative and comfortable HENMT: COMMON NORMALS: normocephalic HEAD & SCALP: normocephalic and laceration left frontal Details of head laceration: linear, superficial and sensation intact; not actively bleeding, not pulsatile bleeding, foreign body not present and not contaminated Head laceration size: 0.5 cm MOUTH: Normal oral and palatal mucosa present THROAT: posterior oropharynx normal and uvula midline Eye: COMMON NORMALS: Equal, round and reactive pupils present and EOMs intact bilaterally PUPIL: Yes Equal, round and reactive pupils present Neck/C-Spine: COMMON NORMALS: supple GENERAL: Yes normal visual inspection Resp: COMMON NORMALS: normal respiratory effort, No retractions, No use of a ccessory muscles and clear to auscultation bilaterally AUSCULTATION: clear to auscultation bilaterally Cardio: COMMON NORMALS: regular rate, regular rhythm, S1 normal heart sound present, S2 normal heart sound present, No gallops present (Cardio), No clicks present (Cardio), No murmurs present (Cardio) and Peripheral pulses 2+ throughout RATE: regular rate RHYTHM: regular rhythm HEART SOUNDS: S1 normal heart sound present and S2 normal heart sound present PERIPHERAL PULSES: Peripheral pulses 2+ throughout GI: COMMON NORMALS: Normal to inspection, nondistended, normoactive bowel sounds present, Soft to palpation, non-tender and no masses PALPATION: Yes Soft to palpation : COMMON NORMALS: Yes no CVA tenderness BLADDER/KIDNEY EXAM: Yes no CVA tenderness Back/Pelvis: COMMON NORMALS: no CVA tenderness Extremity: COMMON NORMALS: normal to inspection Neuro: COMMON NORMALS: patient oriented x3, CN's II-XII intact bilaterally, moves all extremities, no focal motor deficits and no sensory deficits noted SENSORIUM/ORIENTATION: Yes alert SENSORY EXAM: Yes extremities (intact) MOTOR EXAM: 5/5 motor strength present throughout Skin: GENERAL SKIN EXAM: dry skin Procedures Laceration Laceration 1: Site: scalp (Left forehead) Side (If applicable): left Size (cm): 0.5 Description: linear and clean Depth: simple, single layer Pre-repair: irrigated extensively (Nurse irrigated the laceration extensively normal saline) Skin layer closed with: other Technique: other (Dermabond) Course Vital Signs: Vital signs: Vital Signs Temperature 98.4 F 05/09/21 15:49 Pulse Rate 87 05/09/21 16:01 Respiratory Rate 16 05/09/21 16:01 Blood Pressure 158/98 05/09/21 16:01 Pulse Oximetry 94 05/09/21 16:01 MDM - Fall MDM Narrative: Medical decision making narrative: Patient is a 71-year-old male comes to the ED with left forehead laceration after a fall. Denies any loss of consciousness, headache or any neurological symptoms. CT of head showed no acute findings. Laceration was irrigated extensively with normal saline and then wound was closed using Dermabond. Imaging Data^: CT Head: Attestation: I personally reviewed and interpreted this imaging study as follows: Radiologist's impression: [address] [address] [address] Scan Report Signed Patient: Dimitris Santiago Unit #: [id number] : 1950 Age/Sex: 71 / M ADM Date: 05/09/21 Loc: ER Room/Bed: Attending Dr: Ordering Provider/Ordering MD: Bridger Hines Date of Service: 05/09/21 Procedure(s): CT head wo con* [id number] Accession Number(s): [id number] Report Number: [id number] PROCEDURE INFORMATION: Exam: CT Head Without Contrast Exam date and time: 05/09/2021 4:25 PM Age: 71 years old Clinical indication: Injury or trauma; Fall; Blunt trauma (contusions or hematomas); Additional info: Fall with left above eyebrow laceration TECHNIQUE: Imaging protocol: Computed tomography of the head without contrast. Radiation optimization: All CT scans at this facility use at least one of these dose optimization techniques: automated exposure control; mA and/or kV adjustment per patient size (includes targeted exams where dose is matched to clinical indication); or iterative reconstruction. COMPARISON: CT head wo con* [id number] 09/26/2020 5:50 PM RADIATION DOSE METRICS: Total DLP (mGy-cm): 886.09 FINDINGS: Brain: The sulci are within normal limits. Mild hypodensities in supratentorial periventricular and subcortical white matter, consistent with microangiopathy. No intracranial hemorrhage. Cerebral ventricles: No ventriculomegaly. Paranasal sinuses: Visualized sinuses are unremarkable. No fluid levels. Mastoid air cells: Visualized mastoid air cells are well aerated. Vasculature: No hyperdense artery. Bones/joints: Unremarkable. No acute fracture. Soft tissues: Left supraorbital scalp contusion and laceration. CT/CT head wo con* [id number] IMPRESSION: 1. No fracture or intracranial hemorrhage. 2. Left supraorbital scalp injury. Radiation Dose CTDIVOL = (mGy): DLP = 886.09 (mGy-cm) Dictated By: Raúl Wiseman Signed By: Raúl Wiseman Signed Date/Time: 05/09/211711 DD/ 09 Discharge Plan Discharge Patient Disposition: Home Clinical Impression: Laceration of forehead Qualifiers: Encounter type: initial encounter Qualified Code(s): S01.81XA - Laceration without foreign body of other part of head, initial encounter Fall as cause of accidental injury at home as place of occurrence Qualifiers: Encounter type: initial encounter Qualified Code(s): W19.XXXA - Unspecified fall, initial encounter Condition: Stable Prescriptions: No Action lovastatin 20 mg tablet 20 mg PO DAILY@1999 RF: 0 omeprazole 40 mg capsule,delayed release(DR/EC) 40 mg PO DAILY@06 RF: 0 tamsulosin [Flomax] 0.4 mg capsule 0.4 mg PO BEDTIME@1999 RF: 0 bisacodyl 10 mg suppository 10 mg LA DAILY PRN (Reason: constipation) RF: 0 finasteride 5 mg tablet 5 mg PO DAILY@1999 RF: 0 quetiapine [Seroquel] 50 mg tablet 50 mg PO BEDTIME@1999 RF: 0 polyethylene glycol 3350 [Miralax] 17 gram/dose powder 17 gm PO DAILY PRN (Reason: constipation) RF: 0 Enema Disposable 19-7 gram/118 mL enema 118 ml LA DAILY PRN (Reason: Constipation) RF: 0 melatonin 1 mg tablet 1 mg PO DAILY@1999 RF: 0 magnesium hydroxide [Milk of Magnesia] 400 mg/5 mL suspension 5 ml PO DAILY PRN (Reason: Constipation) RF: 0 menthol 3.2 mg lozenge 3.2 mg MUCOUS MEM Q4H RF: 0 ondansetron HCl 4 mg tablet 4 mg PO Q6H PRN (Reason: nausea and vomiting) RF: 0 guaifenesin [Tussin] 100 mg/5 mL liquid 200 mg PO QID PRN (Reason: Cough) RF: 0 Preparation H 0.25-14-74.9 % ointment 1 applic LA DAILY PRN (Reason: rectal discomfort) RF: 0 alum-mag hydroxide-simeth 200-200-20 mg/5 mL suspension 10 ml PO Q6H PRN (Reason: Acid Reflux) RF: 0 Natural Tears (PF) 0.1-0.3 % dropperette 1 drop ophthalmic (eye) Q4H PRN (Reason: Dry Eye(S)) RF: 0 Tylenol 325 mg Tablet 650 mg PO Q4H PRN (Reason: Pain) RF: 0 Debrox 6.5 % Drops 4 drp otic (ear) Q7D PRN (Reason: UNSPECIFIED ) RF: 0 Aricept 10 mg tablet 10 mg PO BEDTIME@2000 RF: 0 Wellbutrin XL 300 mg tablet extended release 24 hr 300 mg PO DAILY@0800 RF: 0 Wellbutrin XL 150 mg tablet extended release 24 hr 150 mg PO DAILY@0800 RF: 0 Namenda 10 mg tablet 10 mg PO BID@0800,2000 RF: 0 Pristiq 100 mg tablet extended release 24 hr 100 mg PO DAILY@0800 RF: 0 [place] 5-325 mg tablet 1 tab PO Q6H Qty: 10 RF: 0 Discharge Orders: Discharge ED (Routine); Ordered 05/09/21 Ordered By: Bridger Hines Referrals: Emerson Pressley DO [Primary Care Provider] - Discharge Diet: Regular Discharge Activity: Resume usual activity Patient Instructions: Laceration (ED), Skin Adhesive Care (ED) Activity Restrictions/Additional Instructions: Follow-up with medical provider as directed in 7 to 10 days for reevaluation. Continue taking all home medications as previously prescribed. Keep laceration site dry for the next 24 hours. Monitor laceration site for any signs of infection such as increased swelling, redness, warmth or purulent drainage. If you see any signs of infection return to the ED, urgent care or PCP immediately for reevaluation. Return to the ER or your medical provider if condition worsens. Please read and understand discharge instructions. Thank you for choosing [facility] for your healthcare needs today. Please realize this is an emergency room and that we are providing you with a medical screening exam and this may not be complete and all inclusive of all the testing and or work up that you may need to determine your ailment or severity of your illness. It is very important that you follow up as instructed or that you return to the Emergency Department should you have concerns or if your condition changes or worsens in any way. Coding Level of Care Code ED Email Production Consultant for Chg Fwd Exam Comprehensive
[2021-05-09] MEDS: tetanus-dipt-pertussis 0.5 mL SDV IM (17:15)
== END 2021-05-09 17:29 | disposition home or self-care (01) ==
PROVIDERS: Emergency Provider Physician Assistant; PCP Internal Medicine
DX: S01.81XA Laceration without foreign body of other part of head, initial encounter (principal); G30.9 Alzheimer's disease, unspecified; F02.80 Dementia in other diseases classified elsewhere, unspecified severity, without behavioral disturbance, psychotic disturbance, mood disturbance, and anxiety; W19.XXXA Unspecified fall, initial encounter; Z23 Encounter for immunization
CPT/HCPCS: 12001; 70450; 90471; 90715; 99282

== ENCOUNTER → 2021-12-28 13:11 | Outpatient (BNVA) | payer MEDICARE, MEDICAID, SELFPAY | PROVIDERS: PCP Internal Medicine; Visit Provider Podiatrist Foot & Ankle Surgery | DX: L85.1 Acquired keratosis [keratoderma] palmaris et plantaris (principal); L60.3 Nail dystrophy | CPT/HCPCS: 17110 ==

== ENCOUNTER → 2022-02-23 09:41 | Outpatient (BNVA) | payer MEDICARE, MEDICAID, SELFPAY | PROVIDERS: PCP Internal Medicine; Visit Provider Podiatrist Foot & Ankle Surgery | DX: L84 Corns and callosities (principal); L85.1 Acquired keratosis [keratoderma] palmaris et plantaris; L60.3 Nail dystrophy; M79.671 Pain in right foot | CPT/HCPCS: 17110 ==

== ENCOUNTER → 2022-08-22 09:12 | Outpatient (BNVA) | payer MEDICARE, MEDICAID, SELFPAY | PROVIDERS: PCP Internal Medicine; Visit Provider Podiatrist Foot & Ankle Surgery | DX: L84 Corns and callosities (principal); L85.1 Acquired keratosis [keratoderma] palmaris et plantaris; L60.3 Nail dystrophy | CPT/HCPCS: 99213 ==

== ENCOUNTER → 2022-10-02 09:51 | Outpatient (BNVA) | payer MEDICARE, MEDICAID, SELFPAY | PROVIDERS: PCP Internal Medicine; Visit Provider Podiatrist Foot & Ankle Surgery | DX: L84 Corns and callosities (principal); L60.3 Nail dystrophy | CPT/HCPCS: 99213 ==

== ENCOUNTER → 2023-04-11 08:21 | Outpatient (BNVA) | payer MEDICARE, MEDICAID, SELFPAY | PROVIDERS: PCP Internal Medicine; Visit Provider Podiatrist Foot & Ankle Surgery | DX: L84 Corns and callosities (principal); L60.3 Nail dystrophy; E11.42 Type 2 diabetes mellitus with diabetic polyneuropathy; Z79.84 Long term (current) use of oral hypoglycemic drugs | CPT/HCPCS: 11055; 11721 ==

== ENCOUNTER → 2023-06-25 09:04 | Outpatient (BNVA) | payer MEDICARE, MEDICAID, SELFPAY | PROVIDERS: PCP Internal Medicine; Visit Provider Podiatrist Foot & Ankle Surgery | DX: L84 Corns and callosities (principal); L60.3 Nail dystrophy; E11.42 Type 2 diabetes mellitus with diabetic polyneuropathy; Z79.84 Long term (current) use of oral hypoglycemic drugs | CPT/HCPCS: 11055; 11721 ==

== ENCOUNTER → 2023-10-09 09:24 | Outpatient (BNVA) | payer MEDICARE, MEDICAID, SELFPAY | PROVIDERS: PCP Internal Medicine; Visit Provider Podiatrist Foot & Ankle Surgery | DX: L84 Corns and callosities (principal); L60.3 Nail dystrophy; E11.42 Type 2 diabetes mellitus with diabetic polyneuropathy; Z79.84 Long term (current) use of oral hypoglycemic drugs | CPT/HCPCS: 11055; 11721 ==

== ENCOUNTER → 2024-01-15 10:05 | Outpatient (BNVA) | payer MEDICARE, MEDICAID, SELFPAY | PROVIDERS: PCP Internal Medicine; Visit Provider Podiatrist Foot & Ankle Surgery | DX: E11.42 Type 2 diabetes mellitus with diabetic polyneuropathy (principal); L84 Corns and callosities; L60.3 Nail dystrophy; Z79.84 Long term (current) use of oral hypoglycemic drugs | CPT/HCPCS: 11055; 11721 ==

== ENCOUNTER → 2024-04-15 09:45 | Outpatient (BNVA) | payer MEDICARE, MEDICAID, SELFPAY | PROVIDERS: PCP Internal Medicine; Visit Provider Podiatrist Foot & Ankle Surgery | DX: E11.42 Type 2 diabetes mellitus with diabetic polyneuropathy (principal); L84 Corns and callosities; L60.3 Nail dystrophy; Z79.84 Long term (current) use of oral hypoglycemic drugs | CPT/HCPCS: 11056; 11721 ==

== ENCOUNTER → 2024-07-15 09:09 | Outpatient (BNVA) | payer MEDICARE, MEDICAID, SELFPAY | PROVIDERS: PCP Internal Medicine; Visit Provider Podiatrist Foot & Ankle Surgery | DX: E11.42 Type 2 diabetes mellitus with diabetic polyneuropathy (principal); L84 Corns and callosities; L60.3 Nail dystrophy; Z79.84 Long term (current) use of oral hypoglycemic drugs | CPT/HCPCS: 11056; 11721 ==

== ENCOUNTER → 2024-11-03 08:38 | Outpatient (BNVA) | payer MEDICARE, MEDICAID, SELFPAY | PROVIDERS: PCP Internal Medicine; Visit Provider Podiatrist Foot & Ankle Surgery | DX: E11.42 Type 2 diabetes mellitus with diabetic polyneuropathy (principal); L84 Corns and callosities; L60.3 Nail dystrophy; Z79.84 Long term (current) use of oral hypoglycemic drugs | CPT/HCPCS: 11056; 11721 ==

== ENCOUNTER → 2025-02-10 08:40 | Outpatient (BNVA) | payer MEDICARE, MEDICAID, SELFPAY | PROVIDERS: PCP Internal Medicine; Visit Provider Podiatrist Foot & Ankle Surgery | DX: E11.42 Type 2 diabetes mellitus with diabetic polyneuropathy (principal); L84 Corns and callosities; L60.3 Nail dystrophy; E11.8 Type 2 diabetes mellitus with unspecified complications; Z79.84 Long term (current) use of oral hypoglycemic drugs | CPT/HCPCS: 11056; 11721 ==

== ENCOUNTER → 2025-05-19 09:16 | Outpatient (BNVA) | payer MEDICARE, MEDICAID, SELFPAY | PROVIDERS: PCP Internal Medicine; Visit Provider Podiatrist Foot & Ankle Surgery | DX: E11.42 Type 2 diabetes mellitus with diabetic polyneuropathy (principal); L60.3 Nail dystrophy; L84 Corns and callosities; E11.8 Type 2 diabetes mellitus with unspecified complications; Z79.84 Long term (current) use of oral hypoglycemic drugs | CPT/HCPCS: 11056; 11721 ==

== ENCOUNTER → 2025-08-10 09:15 | Outpatient (BNVA) | payer MEDICARE, MEDICAID, SELFPAY | PROVIDERS: PCP Internal Medicine; Visit Provider Podiatrist Foot & Ankle Surgery | DX: E11.42 Type 2 diabetes mellitus with diabetic polyneuropathy (principal); L60.3 Nail dystrophy; L84 Corns and callosities; E11.8 Type 2 diabetes mellitus with unspecified complications; Z79.84 Long term (current) use of oral hypoglycemic drugs | CPT/HCPCS: 11056; 11721 ==